=== PATIENT | male | born 1980 | race Two or more races ===

== ENCOUNTER 2018-07-13 01:17 | Emergency (ER) | payer OTHER ==
[2018-07-13] MEDS: DEXAMETHASONE 10 MG/ML 1 ML INJ IM (02:18)
[2018-07-13] MEDS: IPRATROPIUM (NEB) 0.5 MG/2.5 ML AMP INH (02:23)
[2018-07-13] MEDS: ALBUTEROL 0.5% (NEB) 2.5 MG/0.5 ML AMP INH (02:23)
== END 2018-07-13 04:34 | disposition home or self-care (01) ==
LOC: FTE 01:17
DX: R05 Cough (principal); F17.210 Nicotine dependence, cigarettes, uncomplicated; R06.2 Wheezing
CPT/HCPCS: 71045; 94644; 96372; 99284-25

== ENCOUNTER 2018-07-13 16:20 | Emergency (ER) | payer OTHER ==
[2018-07-13] MEDS: IPRATROPIUM (NEB) 0.5 MG/2.5 ML AMP HHN (17:49)
[2018-07-13] MEDS: ALBUTEROL 0.083% (NEB) 2.5 MG/3 ML AMP HHN (17:49)
== END 2018-07-13 18:41 | disposition home or self-care (01) ==
LOC: FTE 16:20
DX: J06.9 Acute upper respiratory infection, unspecified (principal)
CPT/HCPCS: 87400; 94664; 99283-25

== ENCOUNTER 2018-08-12 01:38 | Emergency (ER) | payer OTHER ==
[2018-08-12] MEDS ORDERED: SOD CHLORIDE 0.9% 1,000 ML IV (02:55)
[2018-08-12] MEDS ORDERED: LORAZEPAM 2 MG INJ IV (03:00)
== END 2018-08-12 03:02 | disposition left against medical advice (07) ==
LOC: E/R 01:38
DX: R00.2 Palpitations (principal); R00.0 Tachycardia, unspecified; F17.210 Nicotine dependence, cigarettes, uncomplicated
CPT/HCPCS: 93005; 99283-25